=== PATIENT | female | born 1935 | race African-American/Black ===

== ENCOUNTER 2017-07-19 15:54 | Inpatient (IN) | payer MEDICARE, OTHER ==
[~2017-07-19] VITALS: Ht 162.6 cm; Wt 54.9 kg
[~2017-07-19 15:54] MED LIST: AMLO-512 PO; FOLI1 PO; LISI-661 PO; MERC50TA PO; MESA800T PO; PREM625 PO
[2017-07-19] MEDS ORDERED: OLAN5TAB2 PO (16:15)
[2017-07-19] MEDS ORDERED: ESCI20TA PO (16:15)
[2017-07-19] MEDS ORDERED: LOPE2 PO (16:15)
[2017-07-19] MEDS ORDERED: METO25XL PO (16:15)
[2017-07-19] MEDS ORDERED: SODIUM CHLORIDE 0.9% 1,000 ML IV ONE ×2 (16:44→18:15)
[2017-07-19] MEDS ORDERED: MORPHINE SULFATE 10 MG/ML SYRINGE IVP ONE (16:45)
[2017-07-19] MEDS ORDERED: ONDANSETRON HCL 4 MG/2 ML VIAL IVP ONE (16:45)
[2017-07-19] MEDS ORDERED: HYDROmorphone 2 MG/ML SYRINGE IVP ONE ×2 (17:00→18:00)
[2017-07-19 17:08] LABS: BASOPHILS # (AUTO) 0.02 K/uL (0.00-0.20); BASOPHILS % (AUTO) 1.3 % (0.0-2.0); EOSINOPHILS % (AUTO) 0.11 % (1.0-6.0); HEMATOCRIT 29.6 % (36-46); LYMPHOCYTES # (AUTO) 0.4 K/uL (1.0-4.8); LYMPHOCYTES % (AUTO) 24.3 % (22.0-44.0); MEAN CORPUSCULAR HEMOGLOBIN 31.2 pg (26.0-34.0); MEAN CORPUSCULAR HGB CONC 33.6 G/dL (31.0-37.0); MEAN CORPUSCULAR VOLUME 93 fL (80-100); MONOCYTES # (AUTO) 0.3 K/uL (0.1-1.0); NEUTROPHILS % (AUTO) 55.4 % (40.0-70.0); PLATELET COUNT (AUTO) 144 K/uL (150-450); RED BLOOD CELL COUNT(AUTO) 3.19 MIL/uL (4.00-5.20); RED CELL DISTRIBUTION WIDTH 18.7 % (11.5-14.5); WHITE BLOOD COUNT (AUTO) 1.8 K/uL (4.5-11.0)
[2017-07-19 17:14] LABS: ANION GAP 10 mmol/L (8-16); CALCIUM, TOTAL 8.6 mg/dL (8.8-10.5); CARBON DIOXIDE 27 mmol/L (22-29); CHLORIDE 104 mmol/L (98-107); CREATININE 0.79 mg/dL (0.60-1.30); GLOMERULAR FILTR. RATE CALC > 60 mL/min (>60); POTASSIUM 3.6 mmol/L (3.5-5.1); SODIUM SERUM 141 mmol/L (136-145); UREA NITROGEN, BLOOD 10 mg/dL (7-18)
[2017-07-19 17:20] LABS: ALANINE AMINOTRANSFERASE 29 U/L (12-78); ALBUMIN 3.8 g/dL (3.4-5.0); ASPARTATE AMINOTRANSFERASE 27 U/L (15-37); BILIRUBIN,TOTAL 0.4 mg/dL (0.1-1.0); TOTAL PROTEIN, SERUM 7.6 g/dL (6.4-8.2)
[2017-07-19 17:45] LABS: RBC MORPHOLOGY COMMENT ABNORMAL RBC MORPH
[2017-07-19] MEDS ORDERED: METOCLOPRAMIDE HCL 5 MG/ML 2 ML VIAL IVP ONE ×2 (18:00→20:30)
[2017-07-19] MEDS ORDERED: BARIUM SULFATE 0.1% SUSPENSION 450 ML BOTTLE PO ONE (18:00)
[2017-07-19 18:13] LABS: APPEARANCE,URINE CLOUDY (CLEAR); GLUCOSE, URINE (UA) NEGATIVE (NEGATIVE); KETONES,URINE NEGATIVE (NEGATIVE); LEUKOCYTE ESTERASE ,URINE NEGATIVE (NEGATIVE); OCCULT BLOOD,URINE SMALL (NEGATIVE); PROTEIN,URINE SEE CONFIRM (NEGATIVE)
[2017-07-19] MEDS ORDERED: SODIUM CHLORIDE 0.9% 100 ML ONE (18:14)
[2017-07-19] MEDS ORDERED: IOVERSOL 320 MG/ML 100 ML VIAL ONE (18:14)
[2017-07-19 18:46] LABS: ADD UA MICROSCOPIC YES
[2017-07-19 19:06] LABS: SULFOSALICYLIC ACID,URINE 2+ (Negative)
[2017-07-19 19:07] LABS: SQUAMOUS EPITHELIAL CELL,UR Moderate /LPF (None Seen)
[2017-07-19] MEDS ORDERED: BENZOCAINE 20% 50 MCG/SPRAY 57 GM TP ONE (19:15)
[2017-07-19] MEDS ORDERED: LIDOCAINE HCL 2% VISCOUS 15 ML SOLUTION UDCUP PO ONE (19:15)
[2017-07-19] MEDS ORDERED: LORazepam 2 MG/ML VIAL IVP ONE (19:15)
[2017-07-20] VITALS (7 sets, daily range): BP systolic 121–156; BP diastolic 63–82
[2017-07-20] MEDS ORDERED: BISACODYL 10 MG RECTAL RECTAL SUPPOSITORY PR PRN (00:15)
[2017-07-20] MEDS ORDERED: ZOLPIDEM TARTRATE 5 MG TABLET PO PRN (00:15)
[2017-07-20] MEDS ORDERED: ONDANSETRON HCL 4 MG/2 ML VIAL IVP PRN (00:15)
[2017-07-20] MEDS ORDERED: MAGNESIUM HYDROXIDE SUSPENSION 30 ML UDCUP PO PRN (00:15)
[2017-07-20] MEDS ORDERED: ACETAMINOPHEN 325 MG TABLET PO PRN (00:15)
[2017-07-20] MEDS ORDERED: HYDROmorphone HCL 2 MG TABLET PO PRN (00:15)
[2017-07-20] MEDS ORDERED: HydrALAZINE HCL 20 MG/ML VIAL IVP PRN (00:30)
[2017-07-20] MEDS ORDERED: MetroNIDAZOLE 500 MG/NACL 100 ML IV ONE (00:30)
[2017-07-20] MEDS ORDERED: DEXTROSE 5%-0.9% SODIUM CHL 1,000 ML IV ONE (00:30)
[2017-07-20] MEDS: CIPROFLOXACIN 400 MG/D5% WATER 200 ML IV SCH ×2 (01:20→12:25)
[2017-07-20] MEDS: MetroNIDAZOLE 500 MG/NACL 100 ML IV SCH ×3 (02:30→16:56)
[2017-07-20] MEDS ORDERED: HALOPERIDOL LACTATE 5 MG/ML VIAL IM PRN (06:00)
[2017-07-20] MEDS: HEPARIN SODIUM,PORCINE 5,000 UNITS/ML VIAL SQ SCH ×2 (08:00→16:56)
[2017-07-20] MEDS ORDERED: ENOXAPARIN SODIUM 40 MG/0.4 ML PF SYRINGE SQ SCH (09:00)
[2017-07-20] MEDS ORDERED: LEVOFLOXACIN 750 MG/D5% WATER 150 ML IV ONE (09:00)
[2017-07-20] MEDS: PANTOPRAZOLE SODIUM 40 MG DR TABLET PO SCH (09:00)
[2017-07-20] MEDS: METOPROLOL SUCCINATE 25 MG ER TABLET PO SCH (09:00)
[2017-07-20] MEDS: AmLODIPine BESYLATE 10 MG TABLET PO SCH (09:00)
[2017-07-20] MEDS: DEXTROSE 5%-0.9% SODIUM CHL 1,000 ML IV SCH (17:52)
[2017-07-21] MEDS: HEPARIN SODIUM,PORCINE 5,000 UNITS/ML VIAL SQ SCH ×3 (00:04→15:30)
[2017-07-21] MEDS: CIPROFLOXACIN 400 MG/D5% WATER 200 ML IV SCH ×2 (00:05→15:30)
[2017-07-21] MEDS: MetroNIDAZOLE 500 MG/NACL 100 ML IV SCH ×3 (01:38→17:16)
[2017-07-21 04:12] VITALS: BP 142/71
[2017-07-21 07:00] VITALS: BP 155/78
[2017-07-21] MEDS: METOPROLOL SUCCINATE 25 MG ER TABLET PO SCH (08:45)
[2017-07-21] MEDS: PANTOPRAZOLE SODIUM 40 MG DR TABLET PO SCH (08:45)
[2017-07-21] MEDS: DEXTROSE 5%-0.9% SODIUM CHL 1,000 ML IV SCH (08:45)
[2017-07-21] MEDS: AmLODIPine BESYLATE 10 MG TABLET PO SCH (08:45)
[2017-07-21 09:27] LABS: ANION GAP 9 mmol/L (8-16); CARBON DIOXIDE 26 mmol/L (22-29); CHLORIDE 110 mmol/L (98-107); CREATININE 0.81 mg/dL (0.60-1.30); SODIUM SERUM 145 mmol/L (136-145); UREA NITROGEN, BLOOD 4 mg/dL (7-18)
[2017-07-21 09:28] LABS: ALANINE AMINOTRANSFERASE 20 U/L (12-78); ALBUMIN 2.8 g/dL (3.4-5.0); ASPARTATE AMINOTRANSFERASE 22 U/L (15-37); BILIRUBIN,TOTAL 0.4 mg/dL (0.1-1.0); CALCIUM, TOTAL 7.8 mg/dL (8.8-10.5); GLOMERULAR FILTR. RATE CALC > 60 mL/min (>60)
[2017-07-21 09:32] LABS: HEMOGLOBIN 9.1 g/dL (12.0-16.0); MEAN CORPUSCULAR HEMOGLOBIN 31.3 pg (26.0-34.0); MEAN CORPUSCULAR HGB CONC 33.6 G/dL (31.0-37.0); MEAN CORPUSCULAR VOLUME 93 fL (80-100); PLATELET COUNT (AUTO) 128 K/uL (150-450); RED CELL DISTRIBUTION WIDTH 18.9 % (11.5-14.5); WHITE BLOOD COUNT (AUTO) 2.2 K/uL (4.5-11.0)
[2017-07-21 11:04] LABS: BAND NEUTROPHILS % (MANUAL) 5 % (1-5); LYMPHOCYTES % (MANUAL) 40 % (22-44); RBC MORPHOLOGY COMMENT ABNORMAL RBC MORPH; TOTAL CELLS COUNTED 100
[2017-07-21 11:51] VITALS: BP 129/71
[2017-07-21 13:17] LABS: ANION GAP 7 mmol/L (8-16); CALCIUM, TOTAL 8.1 mg/dL (8.8-10.5); CARBON DIOXIDE 28 mmol/L (22-29); CHLORIDE 111 mmol/L (98-107); CREATININE 0.81 mg/dL (0.60-1.30); GLOMERULAR FILTR. RATE CALC > 60 mL/min (>60); POTASSIUM 3.2 mmol/L (3.5-5.1); SODIUM SERUM 146 mmol/L (136-145); UREA NITROGEN, BLOOD 4 mg/dL (7-18)
[2017-07-21 13:37] LABS: INR 1.1 (0.9-1.1); PROTHROMBIN TIME 11.7 SEC (9.4-11.6)
[2017-07-21] MEDS ORDERED: SODIUM CHLORIDE 0.9% 1,000 ML IV ONE (14:00)
[2017-07-21] MEDS ORDERED: POTASSIUM CHLORIDE 20 MEQ ER TABLET PO ONE (15:45)
[2017-07-21 16:06] VITALS: BP 106/64
[2017-07-21 20:24] VITALS: BP 107/60
[2017-07-22] MEDS: HEPARIN SODIUM,PORCINE 5,000 UNITS/ML VIAL SQ SCH ×2 (00:38→09:07)
[2017-07-22] MEDS ORDERED: PROPOFOL 1% 20 ML VIAL IVP ONE (00:39)
[2017-07-22] MEDS: CIPROFLOXACIN 400 MG/D5% WATER 200 ML IV SCH (01:26)
[2017-07-22 03:18] VITALS: BP 127/67
[2017-07-22] MEDS: MetroNIDAZOLE 500 MG/NACL 100 ML IV SCH ×2 (04:07→09:26)
[2017-07-22 06:31] LABS: MAGNESIUM 1.6 mg/dL (1.80-2.40); PHOSPHORUS 2.8 mg/dL (2.5-4.9); POTASSIUM 3.2 mmol/L (3.5-5.1)
[2017-07-22 07:54] VITALS: BP 132/71
[2017-07-22] MEDS: METOPROLOL SUCCINATE 25 MG ER TABLET PO SCH (09:07)
[2017-07-22] MEDS: PANTOPRAZOLE SODIUM 40 MG DR TABLET PO SCH (09:07)
[2017-07-22] MEDS: AmLODIPine BESYLATE 10 MG TABLET PO SCH (09:07)
[2017-07-22] MEDS: DEXTROSE 5%-0.9% SODIUM CHL 1,000 ML IV SCH (09:11)
[2017-07-22 12:48] VITALS: BP 125/69
== END 2017-07-22 13:25 | disposition home or self-care (01) | DRG 391 ==
LOC: EMS 15:57 → 6N 07-20 00:11
PROVIDERS: ADMIT Internal Medicine; ATTEND Internal Medicine
PROC: 0DB68ZX Excision of Stomach, Via Natural or Artificial Opening Endoscopic, Diagnostic (ICD-10-PCS; principal; 2017-07-21 14:00)
DX: A08.4 Viral intestinal infection, unspecified (principal); D61.811 Other drug-induced pancytopenia; F03.90 Unspecified dementia, unspecified severity, without behavioral disturbance, psychotic disturbance, mood disturbance, and anxiety; K50.90 Crohn's disease, unspecified, without complications; K29.70 Gastritis, unspecified, without bleeding; I10 Essential (primary) hypertension; Z88.5 Allergy status to narcotic agent; Z88.0 Allergy status to penicillin; Z79.899 Other long term (current) drug therapy; Z90.710 Acquired absence of both cervix and uterus; Z90.49 Acquired absence of other specified parts of digestive tract; T45.1X5A Adverse effect of antineoplastic and immunosuppressive drugs, initial encounter
CPT/HCPCS: 74022; 74177; 83735; 84100; 84132; 88305; 88312; 93005; 96361; 96374; 96375; 96376; 99285; J0744; J1170; J1644; J1956; J2060; J2405; J2704; J2765; J3490; J7030; J7042; J7050